=== PATIENT | male | born 1965 | race Caucasian/White ===

== ENCOUNTER 2017-05-21 14:58 | Inpatient (IN) | payer OTHER ==
[~2017-05-21] VITALS: Ht 175.3 cm; Wt 100.6 kg
[~2017-05-21 14:58] MED LIST: ADVIL200 MG PO; ALEVE220 MG PO; ALKA-SELTZER P1 EAC2 PO; AUGMENTIN875 MG PO; BACTRIM,SEPT1 TABLET PO; CILOSTAZOL50 MG PO; GABAPENTIN300 MG PO; GLUCOPHAGE500 MG PO; HUMALOG100 UNIT/2 SC; LANTUS 10100 UNITS/ SC; LISINOPRIL20 MG PO; METFORMIN HCL500 MG PO; METOPROLOL SUCC50 MG PO; NEURONTIN400 MG PO; NEURONTIN600 MG PO; OXYCODONE HCL10 MG PO; OXYCODONE HCL5 MG PO; OXYCODONE-APAP1 EACH PO; PROBIOTIC1 EAC1 PO; TOUJEO SOL300 UNIT/1 SC; ZANTAC75 M1 PO
[2017-05-21 16:17] LABS: HEMATOCRIT 39.2 % (38.0-50.0); HEMOGLOBIN 13.2 G/DL (12.5-16.6); MCH 26.7 PG (29.0-34.0); MCHC 33.7 G/DL (30.0-36.0); MCV 79.4 FL (86-99); PLATELET COUNT 379 K/uL (156-360); RBC DIS.WIDTH-CV 13.6 % (11.8-14.6); RBC DIS.WIDTH-SD 39.2 % (39-53); RED BLOOD COUNT 4.94 M/uL (4.00-5.50)
[2017-05-21 16:25] LABS: ALBUMIN 3.1 g/dL (3.2-4.8); CHLORIDE 89 mEq/L (99-109); POTASSIUM 4.3 mEq/L (3.7-5.4); SODIUM 127 mEq/L (136-147)
[2017-05-21 16:27] LABS: GLUCOSE 392 mg/dL (70-99); TOTAL PROTEIN 8.1 g/dL (6.4-8.3)
[2017-05-21 16:29] LABS: TOTAL BILIRUBIN 0.3 mg/dL (0.0-1.0)
[2017-05-21 16:31] LABS: ALKALINE PHOSPHATASE 220 IU/L (3-129); CREATININE 1.3 mg/dL (0.6-1.3); GFR ESTIMATE (CALCULATED) > 59 mL/min/ (58.99-99999)
[2017-05-21 16:32] LABS: UREA NITROGEN (BUN) 17 mg/dL (9-23)
[2017-05-21 16:33] LABS: AST (GOT) 18 IU/L (2-34)
[2017-05-21 16:34] LABS: ALT (GPT) 17 IU/L (3-49)
[2017-05-21] MEDS ORDERED: MICROZIDE12.5 M1 PO (18:41)
[2017-05-21] MEDS ORDERED: PRAVACHOL20 MG PO (18:41)
[2017-05-21] MEDS ORDERED: VENLAFAXINE H37.5 M1 PO (18:43)
[2017-05-21] MEDS ORDERED: ZANTAC75 M1 PO (18:44)
[2017-05-21] MEDS ORDERED: VISINE DRY EYE15 ML BOTH EYES (18:45)
[2017-05-21 20:33] VITALS: BP 150/73
[2017-05-21 21:00] VITALS: BP 150/73
[2017-05-21 21:23] LABS: Estimated Average Glucose 283 mg/dL (70-123); HEMOGLOBIN A1c (GLYCOHEMOGLOB) 11.5 % HGB (Below 5.7)
[2017-05-21 23:12] VITALS: BP 120/68
[2017-05-22 03:43] VITALS: BP 122/68
[2017-05-22 06:28] LABS: CHLORIDE 96 MEQ/L (99-109); CREATININE 0.9 MG/DL (0.6-1.3); GFR ESTIMATE (CALCULATED) > 59 mL/min/ (58.99-99999); GLUCOSE 237 mg/dL (70-99); POTASSIUM 3.6 MEQ/L (3.7-5.4); SODIUM 131 MEQ/L (136-147); UREA NITROGEN (BUN) 15 mg/dL (9-23)
[2017-05-22 06:53] LABS: HEMATOCRIT 33.8 % (38.0-50.0); MCH 26.2 PG (29.0-34.0); MCHC 32.8 G/DL (30.0-36.0); MCV 79.9 FL (86-99); PLATELET COUNT 347 K/uL (156-360); RBC DIS.WIDTH-CV 13.7 % (11.8-14.6); RBC DIS.WIDTH-SD 40.1 % (39-53); RED BLOOD COUNT 4.23 M/uL (4.00-5.50); WHITE BLOOD COUNT 6.8 K/uL (4.1-10.2)
[2017-05-22 06:54] LABS: HEMOGLOBIN 11.1 G/DL (12.5-16.6)
[2017-05-22 08:12] VITALS: BP 145/78
[2017-05-22 12:00] VITALS: BP 140/72
[2017-05-22 17:09] VITALS: BP 126/78
[2017-05-22 23:16] VITALS: BP 137/86
[2017-05-23 05:35] LABS: HEMATOCRIT 34.7 % (38.0-50.0); HEMOGLOBIN 11.2 G/DL (12.5-16.6); MCHC 32.3 G/DL (30.0-36.0); MCV 80.5 FL (86-99); PLATELET COUNT 358 K/uL (156-360); RBC DIS.WIDTH-SD 41.6 % (39-53); RED BLOOD COUNT 4.31 M/uL (4.00-5.50); WHITE BLOOD COUNT 6.9 K/uL (4.1-10.2)
[2017-05-23 05:58] LABS: C-REACTIVE PROTEIN 108.6 MG/L (0-10); CHLORIDE 103 MEQ/L (99-109); CREATININE 0.9 MG/DL (0.6-1.3); GFR ESTIMATE (CALCULATED) > 59 mL/min/ (58.99-99999); POTASSIUM 3.8 MEQ/L (3.7-5.4); UREA NITROGEN (BUN) 10 mg/dL (9-23); VANCOMYCIN, TROUGH 15.2 MCG/ML (10-20)
[2017-05-23 05:59] LABS: GLUCOSE 111 mg/dL (70-99); SODIUM 138 MEQ/L (136-147)
[2017-05-23 07:42] LABS: ERTH.SED.RATE 84 MM/HR (0-20)
[2017-05-23 08:06] VITALS: BP 124/68
[2017-05-23 15:34] VITALS: BP 124/72
[2017-05-23 20:44] VITALS: BP 110/68
[2017-05-24 00:14] VITALS: BP 118/70
[2017-05-24 03:57] VITALS: BP 140/82
[2017-05-24 06:29] LABS: HEMATOCRIT 33.9 % (38.0-50.0); HEMOGLOBIN 10.8 G/DL (12.5-16.6); MCH 26.3 PG (29.0-34.0); MCHC 31.9 G/DL (30.0-36.0); MCV 82.5 FL (86-99); PLATELET COUNT 399 K/uL (156-360); RBC DIS.WIDTH-CV 14.5 % (11.8-14.6); RBC DIS.WIDTH-SD 43.5 % (39-53); RED BLOOD COUNT 4.11 M/uL (4.00-5.50); WHITE BLOOD COUNT 7.9 K/uL (4.1-10.2)
[2017-05-24 08:02] VITALS: BP 138/80
[2017-05-24 16:52] VITALS: BP 128/61
[2017-05-25 00:13] VITALS: BP 148/85
[2017-05-25 07:28] LABS: BASOPHIL (%) 0.8 % (0-1); BASOPHIL COUNT 0.1 K/uL (0-0.1); EOSINOPHIL (%) 1.6 % (0-5); EOSINOPHIL COUNT 0.1 K/uL (0-0.3); HEMATOCRIT 33.8 % (38.0-50.0); HEMOGLOBIN 10.8 G/DL (12.5-16.6); IMMATURE GRANULOCYTE (%) 1.4 % (0.0-0.7); LYMPHOCYTE (%) 39.6 % (15-42); MCH 26.2 PG (29.0-34.0); MCV 81.8 FL (86-99); MONOCYTE (%) 5.2 % (3-12); MONOCYTE COUNT 0.4 K/uL (0-0.8); NEUTROPHIL (%) 51.4 % (45-76); NEUTROPHIL COUNT 3.9 K/uL (1.8-6.4); PLATELET COUNT 394 K/uL (156-360); RBC DIS.WIDTH-CV 14.1 % (11.8-14.6); RBC DIS.WIDTH-SD 41.9 % (39-53); RED BLOOD COUNT 4.13 M/uL (4.00-5.50); WHITE BLOOD COUNT 7.6 K/uL (4.1-10.2)
[2017-05-25 07:54] LABS: CHLORIDE 104 MEQ/L (99-109); CREATININE 0.9 MG/DL (0.6-1.3); GFR ESTIMATE (CALCULATED) > 59 mL/min/ (58.99-99999); GLUCOSE 126 mg/dL (70-99); SODIUM 138 MEQ/L (136-147); UREA NITROGEN (BUN) 17 mg/dL (9-23)
[2017-05-25 07:55] LABS: POTASSIUM 5.7 MEQ/L (3.7-5.4)
[2017-05-25 08:30] VITALS: BP 130/78
[2017-05-25 16:30] VITALS: BP 130/80
[2017-05-25 23:45] VITALS: BP 124/82
[2017-05-26 05:45] LABS: BASOPHIL (%) 0.8 % (0-1); BASOPHIL COUNT 0.1 K/uL (0-0.1); EOSINOPHIL (%) 2.4 % (0-5); EOSINOPHIL COUNT 0.2 K/uL (0-0.3); HEMATOCRIT 33.6 % (38.0-50.0); HEMOGLOBIN 10.8 G/DL (12.5-16.6); IMMATURE GRANULOCYTE (%) 1.6 % (0.0-0.7); LYMPHOCYTE (%) 41.4 % (15-42); LYMPHOCYTE COUNT 3.1 K/uL (1.0-2.8); MCH 26.7 PG (29.0-34.0); MCHC 32.1 G/DL (30.0-36.0); MONOCYTE (%) 5.5 % (3-12); MONOCYTE COUNT 0.4 K/uL (0-0.8); NEUTROPHIL (%) 48.3 % (45-76); NEUTROPHIL COUNT 3.6 K/uL (1.8-6.4); PLATELET COUNT 429 K/uL (156-360); RBC DIS.WIDTH-CV 14.1 % (11.8-14.6); RBC DIS.WIDTH-SD 42.3 % (39-53); RED BLOOD COUNT 4.05 M/uL (4.00-5.50); WHITE BLOOD COUNT 7.5 K/uL (4.1-10.2)
[2017-05-26 06:09] LABS: CHLORIDE 101 MEQ/L (99-109); GFR ESTIMATE (CALCULATED) > 59 mL/min/ (58.99-99999); GLUCOSE 95 mg/dL (70-99); POTASSIUM 5.1 MEQ/L (3.7-5.4); SODIUM 135 MEQ/L (136-147); UREA NITROGEN (BUN) 17 mg/dL (9-23)
[2017-05-26 08:04] VITALS: BP 153/81
[2017-05-26 16:27] VITALS: BP 148/86
[2017-05-26 23:32] VITALS: BP 169/88
[2017-05-27 06:48] LABS: CHLORIDE 102 MEQ/L (99-109); CREATININE 1.1 MG/DL (0.6-1.3); GFR ESTIMATE (CALCULATED) > 59 mL/min/ (58.99-99999); GLUCOSE 73 mg/dL (70-99); POTASSIUM 5.3 MEQ/L (3.7-5.4); SODIUM 136 MEQ/L (136-147); UREA NITROGEN (BUN) 19 mg/dL (9-23)
[2017-05-27 08:04] VITALS: BP 148/83
[2017-05-27 16:07] VITALS: BP 136/78
[2017-05-27 23:06] VITALS: BP 161/88
[2017-05-28 08:05] VITALS: BP 148/76
[2017-05-28] MEDS ORDERED: PERCOCET 5/31 TABLET PO (09:54)
[2017-05-28 16:35] VITALS: BP 136/68
== END 2017-05-28 20:27 | disposition home or self-care (01) | DRG 475 ==
LOC: EME 14:58 → 3EAST 18:07 → EDOF 18:07 → ENRESERV 18:09 → 3EAST 20:25
PROVIDERS: Hospitalist; Internal Medicine; Physician Assistant; Student in an Organized Health Care Education/Training Program; Surgery
DX: M86.9 Osteomyelitis, unspecified (principal); L03.116 Cellulitis of left lower limb; E11.622 Type 2 diabetes mellitus with other skin ulcer; L97.429 Non-pressure chronic ulcer of left heel and midfoot with unspecified severity; M84.40XA Pathological fracture, unspecified site, initial encounter for fracture; L97.529 Non-pressure chronic ulcer of other part of left foot with unspecified severity; E11.69 Type 2 diabetes mellitus with other specified complication; L89.629 Pressure ulcer of left heel, unspecified stage; E11.621 Type 2 diabetes mellitus with foot ulcer; E87.1 Hypo-osmolality and hyponatremia; I10 Essential (primary) hypertension; E11.42 Type 2 diabetes mellitus with diabetic polyneuropathy; E11.65 Type 2 diabetes mellitus with hyperglycemia; K21.0 Gastro-esophageal reflux disease with esophagitis; E78.2 Mixed hyperlipidemia; E87.6 Hypokalemia; E87.5 Hyperkalemia; S90.822A Blister (nonthermal), left foot, initial encounter; Z89.422 Acquired absence of other left toe(s); Z79.4 Long term (current) use of insulin; Z79.899 Other long term (current) drug therapy; Z80.0 Family history of malignant neoplasm of digestive organs; Z82.49 Family history of ischemic heart disease and other diseases of the circulatory system; Z89.421 Acquired absence of other right toe(s); Z83.3 Family history of diabetes mellitus; M60.9 Myositis, unspecified; Z68.32 Body mass index [BMI] 32.0-32.9, adult
CPT/HCPCS: 73630; 73720; 76937; 80048; 80053; 80202; 82948; 83036; 83605; 85025; 85027; 85651; 86140; 87040; 87070; 87075; 87077; 87147; 87186; 87205; 88305; 88311; 90686; 99202; 99281; 99285; J0295; J0696; J1644; J1650; J1815; J1885; J2250; J2405; J2543; J3010; J3370; J7030; J7042; J7050